=== PATIENT | male | born 1975 | race Caucasian/White ===

== ENCOUNTER → 2016-11-21 | Outpatient (CLI) | payer BC ==
[2016-11-21 08:08] LABS: Basophils % (A) 1 %; CH 32.7; CHCM 34.8; Eosinophils # (A) 0.2 k/uL (0-0.7); Eosinophils % (A) 4 %; HCT 46.1 % (39.0-53.0); HGB 15.1 gm/dL (13.0-17.5); Luc # (Auto) 0.17; Luc % (Auto) 4; Lymphocytes # (A) 1.5 k/uL (1.0-4.8); Lymphocytes % (A) 32 %; MCH 30.9 pg (25.0-35.0); MCHC 32.8 g/dL (31.0-37.0); MCV 94.3 fL (80.0-100.0); Mean Platelet Volume 6.3; Monocytes # (A) 0.3 k/uL (0-1.0); Monocytes % (A) 7 %; Neutrophils # (A) 2.3 k/uL (1.3-7.7); Neutrophils % (A) 52 %; RBC 4.89 m/uL (4.30-5.90); RDW 12.3 % (11.5-15.5); WBC 4.5 k/uL (3.8-10.6); WBC (Perox) 4.52
[2016-11-21 10:50] LABS: ALT 37 U/L (21-72); AST 26 U/L (17-59); Alkaline Phosphatase 57 U/L (38-126); Anion Gap 10 mmol/L; Blood Urea Nitrogen 14 mg/dL (9-20); Calcium 9.4 mg/dL (8.4-10.2); Carbon Dioxide 28 mmol/L (22-30); Chloride 104 mmol/L (98-107); Cholesterol 143 mg/dL (<200); Glucose 95 mg/dL (74-99); HDL Cholesterol 58 mg/dL (40-60); Non-African American GFR(MDRD) >60 (>60 ml/min/1.73 sqM); Potassium 4.3 mmol/L (3.5-5.1); Sodium 142 mmol/L (137-145); Total Bilirubin 0.7 mg/dL (0.2-1.3); Total Protein 7.1 g/dL (6.3-8.2); Triglycerides 62 mg/dL (<150)
== END | disposition home or self-care (01) ==
LOC: LABWHC1 07:31
PROVIDERS: ATTEND Internal Medicine
DX: Z00.00 Encounter for general adult medical examination without abnormal findings (principal); Z12.5 Encounter for screening for malignant neoplasm of prostate
CPT/HCPCS: 80061; 80053; 85025; 36415; G0103

== ENCOUNTER → 2016-12-05 | Outpatient (CLI) | payer BC ==
--- NOTE | 2016-12-05 12:10 | EST ---
DATE OF SERVICE: 12/05/2016 AGE: 41Y SEX: M HT: 71" WT: 185 lbs. Protocol James: X Other: Stage: IV Dur. of Exercise: 12:00 *Heart Rate Blood Pressure *Rest: 66 Rest: 119/67 * *Max. Achieved: 177 Maximum BP: 200/80 85% PMHR: 151 100% PMHR: 178 *METS: 10.9 INDICATIONS: Chest pain. MEDICATIONS: STRESS DATA: Pre-testing physical examination showed a heart rate of 66, pressure is 119/67 mm of mercury. Baseline EKG showed sinus mechanism. The patient exercised on the treadmill according to James protocol for a total of 12 minutes and achieved 10.9 mets. Maximum heart rate was 177 which is about 99% of maximum predicted heart rate. Maximum blood pressure was 200/80 mm of mercury. Clinically, the patient did not have any symptoms, and the EKG did not show any significant ST or T wave abnormalities consistent with ischemia. CONCLUSION: 1. Excellent exercise capacity. 2. Normal EKG in response in response to exercise.
== END | disposition home or self-care (01) ==
LOC: RADNMMAIN 10:33
PROVIDERS: ATTEND Internal Medicine
DX: R07.9 Chest pain, unspecified (principal)
CPT/HCPCS: 93017

== ENCOUNTER → 2019-01-09 | Outpatient (CLI) | payer BC ==
[2019-01-09 08:16] LABS: Basophils % (A) 1 %; Eosinophils # (A) 0.1 k/uL (0-0.7); Eosinophils % (A) 2 %; HCT 45.8 % (39.0-53.0); HGB 15.1 gm/dL (13.0-17.5); Lymphocytes # (A) 1.4 k/uL (1.0-4.8); Lymphocytes % (A) 33 %; MCH 30.8 pg (25.0-35.0); MCV 93.4 fL (80.0-100.0); Mean Platelet Volume 6.3; Monocytes # (A) 0.4 k/uL (0-1.0); Monocytes % (A) 10 %; Neutrophils # (A) 2.2 k/uL (1.3-7.7); Neutrophils % (A) 53 %; Platelet Count 190 k/uL (150-450); RDW 12.1 % (11.5-15.5); WBC 4.2 k/uL (3.8-10.6)
[2019-01-09 16:19] LABS: Albumin 4.3 g/dL (3.80-4.90); Albumin/Globulin Ratio 2.26 (1.60-3.17); Anion Gap 6.2 mmol/L (4.00-12.00); Calcium 9.4 mg/dL (8.7-10.3); Carbon Dioxide 27.8 mmol/L (21.6-31.8); Globulin 1.9 g/dL (1.6-3.3); LDL Cholesterol,Calculated 70.4 mg/dL (0.0-131.0); Potassium 4.3 mmol/L (3.5-5.5); Total Bilirubin 0.6 mg/dL (0.2-1.2); Total Protein 6.2 g/dL (6.2-8.2); VLDL Calculation 13.6 mg/dL (5.00-40.00)
== END | disposition home or self-care (01) ==
LOC: LABWHC1 07:25
PROVIDERS: ATTEND Internal Medicine
DX: Z00.00 Encounter for general adult medical examination without abnormal findings (principal); Z12.5 Encounter for screening for malignant neoplasm of prostate
CPT/HCPCS: 80061; 80053; 85025; 36415; G0103

== ENCOUNTER → 2019-02-26 | Outpatient (CLI) | payer BC ==
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
== END | disposition home or self-care (01) ==
LOC: SLEEP 16:47
PROVIDERS: ATTEND Internal Medicine
DX: G47.33 Obstructive sleep apnea (adult) (pediatric) (principal); Z87.81 Personal history of (healed) traumatic fracture; Z87.891 Personal history of nicotine dependence; Z98.890 Other specified postprocedural states
CPT/HCPCS: 99211

== ENCOUNTER 2020-01-14 18:06 | Inpatient (IN) | payer BC ==
--- NOTE | 2020-01-14 18:46 | XR ---
EXAMINATION TYPE: XR soft tissue neck DATE OF EXAM: 01/14/2020 COMPARISON: NONE HISTORY: Neck pain TECHNIQUE: 2 views FINDINGS: Prevertebral soft tissues appear normal. Tonsils and adenoids appear normal. Subglottic tra johnathan appears normal. There is some thickening of the epiglottis. Cervical vertebra have normal spacin g and alignment. IMPRESSION: There is thickening of the epiglottis suggestive of some mild epiglottitis.
[2020-01-14] MEDS ORDERED: DEXAMETHASONE SOD PHOSPHATE 10 MG/ML 1 ML VIAL IV STA (19:14)
[2020-01-14] MEDS ORDERED: SODIUM CHLORIDE 0.9% 1,000 ML IV STA (19:14)
[2020-01-14] MEDS ORDERED: ACETAMINOPHEN TAB 325 MG TAB PO PRN (19:21)
[2020-01-14] MEDS ORDERED: IBUPROFEN 400 MG TAB PO PRN (19:21)
[2020-01-14] MEDS ORDERED: HYDROmorphone 0.5 MG/0.5 ML SYRINGE IVP PRN (19:21)
[2020-01-14] MEDS ORDERED: KETOROLAC 30 MG/ML 1 ML VIAL IVP PRN (19:21)
[2020-01-14] MEDS ORDERED: NALOXONE 0.4 MG/ML 1 ML VIAL IV PRN (19:21)
[2020-01-14] MEDS ORDERED: LORazepam 2 MG/ML INJ IV PRN (19:21)
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
[2020-01-14 19:29] LABS: Basophils % (A) 0 %; Eosinophils # (A) 0.1 k/uL (0-0.7); Eosinophils % (A) 1 %; HCT 41.7 % (39.0-53.0); HGB 14.2 gm/dL (13.0-17.5); Lymphocytes # (A) 0.8 k/uL (1.0-4.8); Lymphocytes % (A) 8 %; MCHC 34.1 g/dL (31.0-37.0); Monocytes # (A) 0.8 k/uL (0-1.0); Monocytes % (A) 8 %; Neutrophils # (A) 8.7 k/uL (1.3-7.7); Neutrophils % (A) 83 %; Platelet Count 131 k/uL (150-450); RBC 4.44 m/uL (4.30-5.90); RDW 12.3 % (11.5-15.5); WBC 10.5 k/uL (3.8-10.6)
[2020-01-14 19:37] LABS: ALT 24 U/L (4-49); AST 29 U/L (17-59); African American GFR (CKD) >90 (>60 ml/min/1.73 sqM); Albumin 4.2 g/dL (3.5-5.0); Alkaline Phosphatase 68 U/L (38-126); Anion Gap 7 mmol/L; Blood Urea Nitrogen 8 mg/dL (9-20); Calcium 9.3 mg/dL (8.4-10.2); Carbon Dioxide 26 mmol/L (22-30); Chloride 100 mmol/L (98-107); Glucose 122 mg/dL (74-99); Non-African American GFR(CKD) >90 (>60 ml/min/1.73 sqM); Potassium 3.6 mmol/L (3.5-5.1); Sodium 133 mmol/L (137-145); Total Bilirubin 1.1 mg/dL (0.2-1.3); Total Protein 6.9 g/dL (6.3-8.2)
[2020-01-14] MEDS ORDERED: IBUPROFEN ORAL SUSP 100 MG/5 ML CUP PO ONE (19:38)
[2020-01-14] MEDS ORDERED: AMPICILLIN-SULBACTAM 3 GM in SODIUM CHLORIDE 0.9% 100 ML IVPB STA (19:39)
[2020-01-14] MEDS: SODIUM CHLORIDE 0.9% 1,000 ML IV SCH (19:46)
[2020-01-14] MEDS ORDERED: VANCOMYCIN IV PER PHARMACY 1 EACH MISC MISCELLANE PRN (20:10)
[2020-01-14] MEDS ORDERED: VANCOMYCIN 1,500 MG in SODIUM CHLORIDE 0.9% 250 ML IVPB STA (20:18)
[2020-01-14] MEDS ORDERED: CALCIUM CARBONATE LIQUID 500 MG/5 ML CUP PO PRN (22:17)
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
[2020-01-14] MEDS ORDERED: MELATONIN 3 MG TABLET PO SCH (23:15)
[2020-01-15 08:04] LABS: Basophils % (A) 0 %; Eosinophils % (A) 0 %; HCT 40.6 % (39.0-53.0); HGB 13.9 gm/dL (13.0-17.5); Lymphocytes # (A) 0.4 k/uL (1.0-4.8); Lymphocytes % (A) 5 %; MCH 32.5 pg (25.0-35.0); MCHC 34.3 g/dL (31.0-37.0); MCV 94.7 fL (80.0-100.0); Mean Platelet Volume 6.7; Monocytes # (A) 0.3 k/uL (0-1.0); Monocytes % (A) 4 %; Neutrophils # (A) 7.5 k/uL (1.3-7.7); Neutrophils % (A) 90 %; Platelet Count 138 k/uL (150-450); RBC 4.29 m/uL (4.30-5.90); RDW 12.2 % (11.5-15.5); WBC 8.3 k/uL (3.8-10.6)
[2020-01-15 08:07] LABS: African American GFR (CKD) >90 (>60 ml/min/1.73 sqM); Anion Gap 5 mmol/L; Blood Urea Nitrogen 9 mg/dL (9-20); Calcium 9.1 mg/dL (8.4-10.2); Carbon Dioxide 26 mmol/L (22-30); Chloride 107 mmol/L (98-107); Glucose 144 mg/dL (74-99); Non-African American GFR(CKD) >90 (>60 ml/min/1.73 sqM); Potassium 4.2 mmol/L (3.5-5.1); Sodium 138 mmol/L (137-145)
[2020-01-15] MEDS: SODIUM CHLORIDE 0.9% 1,000 ML IV SCH (08:21)
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
[2020-01-15] MEDS ORDERED: VANCOMYCIN 1,500 MG in SODIUM CHLORIDE 0.9% 250 ML IVPB SCH (09:00)
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
[2020-01-15] MEDS ORDERED: DEXAMETHASONE SOD PHOSPHATE 10 MG/ML 1 ML VIAL IV STA (16:12)
[2020-01-15 16:16] VITALS: BP 134/84; PULSE 81; RESP 17; TEMP 98.8
[2020-01-15] MEDS ORDERED: AZITHROMYCIN 500 MG TAB PO STA (16:26)
--- NOTE | 2020-01-15 17:16 | P.DS ---
Providers Date of admission: 01/14/20 19:35 Expected date of discharge: 01/15/20 Attending physician: Gege Mcmillan MD Consults: 01/14/20 19:21 Consult Physician Stat Consulting Provider: Greg Faustin Consult Reason/Comments: Epiglottitis, dysphagia Do you want consulting provider notified?: Yes 01/14/20 22:09 Consult Physician Routine Consulting Provider: Morteza Moody Consult Reason/Comments: epiglottitis Do you want consulting provider notified?: Already Contacted Primary care physician: Simba [place] Hospital Course: discharge diagnosis Acute pharyngitis mild epiglottitis dysphagia rule out CoViD asplenia Hospital course The patient is a 44-year-old male with no significant past focal history that presented with sore throat trouble swallowing and dysphagia found to have suspected sepsis due to acute epiglottitis and was admitted for IV antibiotics with Rocephin and vancomycin supportive treatment with IV fluids and pain control as needed, the patient had previously received a dose of Unasyn and steroids which were discontinued. Given the patient's history of asplenia and presenting with fevers and was thought but best practice to place him on observation and consult ENT. Of note the patient was heterophile antibody negative, the patient was seen by Dr. Moody and Dr. Faustin and recommended for discharge if there is no evidence of stridor or lower respiratory tract infection. He was discharged home in stable condition on azithromycin and a Medrol Dosepak and recommended to follow-up with his PCP/ this discharge process took approximately 35 minutes Focused exam ENT: Within normal limits Patient Condition at Discharge: Stable Plan - Discharge Summary Discharge Rx Participant: No New Discharge Prescriptions: New methylPREDNISolone Dose Pack [Medrol Dose Pack] 4 mg PO DIRECTED #21 package Azithromycin [Zithromax] 250 mg PO DAILY 4 Days #4 tab Continue Ibuprofen [Motrin Ib] 800 mg PO Q8H PRN PRN Reason: Pain Or Fever > 100.5 Discontinued Cefuroxime [Ceftin] 250 mg PO BID Discharge Medication List Ibuprofen [Motrin Ib] 800 mg PO Q8H PRN 01/14/20 [History] Azithromycin [Zithromax] 250 mg PO DAILY 4 Days #4 tab 01/15/20 [Rx] methylPREDNISolone Dose Pack [Medrol Dose Pack] 4 mg PO DIRECTED #21 package 01/15/20 [Rx] Follow up Appointment(s)/Referral(s): Simba Sandoval MD [Primary Care Provider] - 1-2 days Patient Instructions/Handouts: Epiglottitis (DC) Activity/Diet/Wound Care/Special Instructions: Patient will be admitted Discharge Disposition: HOME SELF-CARE
[2020-01-16] MEDS ORDERED: VANCOMYCIN TROUGH DUE 1 EACH MISC MISCELLANE ONE (08:00)
--- NOTE | 2020-01-17 06:55 | CONS ---
CONSULTATION DATE OF CONSULTATION: 01/15/2020. REASON FOR THE CONSULTATION: Supraglottitis/epiglottitis. HISTORY OF PRESENT ILLNESS: This patient is a pleasant 44-year-old male who was admitted via the [facility] for treatment of supraglottitis/epiglottitis. The patient states that approximately 4 or 5 days prior to his admission, he started developing mainly a left- sided sore throat. He denies any referred pain to the left ear. He is not a smoker. The soreness progressed to the point that he was having difficulty swallowing solid foods. After several days of the discomfort and pain, the patient states that he also started having some slight difficulty with breathing and therefore went to one of the urgent care centers. He was seen there and was subsequently placed on an antibiotic, he said he thinks it was Keflex 500 mg t.i.d. and was sent home. He only took one pill and because he did not feel better, he then felt that it would be best to go to the [facility] Emergency Room. At the time that he was seen in the emergency room, a soft tissue lateral x-ray of the neck revealed the presence of mild swelling of the soft tissue of the epiglottis. The patient at that time was not having any difficulty breathing, but was having difficulty swallowing solid foods, but was not having difficulty handling his own secretions. He was not drooling. In addition to this, he was running a low-grade temperature of 100. Although on reviewing soft tissue lateral x-ray of the neck does not reveal the classic "thumbprint sign", there is evidence of soft tissue swelling and edema of the epiglottis with no obvious obstruction to the upper airway and there is no subglottic edema, swelling or narrowing of the trachea. The patient was admitted to [address] [place] [address] and was placed on oxygen, vancomycin and was given intravenous steroids. I was called on consultation on this patient because of concerns of his airway. At the time of the consultation I did inform the nurse that the patient could go ahead and have a meal because it is quite unusual given the findings that I saw on his x-rays that he would need a tracheostomy which is rarely done and rarely indicated in modern day medicine. At the very most, these patients are well handled with intubation, although in the case of adults it is rare that adults reached the point of developing complete or emergency airway obstruction. At the time I saw the patient in the room, he was doing well and was not having any difficulty breathing and was able to swallow food stuff without difficulty. PAST MEDICAL HISTORY: He has no allergies to medications MEDICATIONS: Current home medications include [id number] Motrin, and he had started a Medrol Dosepak and Zithromax from the Urgent Care Center (apparently was not Keflex). REVIEW OF SYSTEMS: The review of systems is completely noncontributory. PHYSICAL EXAMINATION: This patient is a very pleasant 44-year-old male who is alert, cooperative and well- oriented to time and place. HEENT examination: Patient is normocephalic. Tympanic membranes are normal. Middle ear space is free of any fluid or infection. Pupils equal, round, react to light and accommodation. Extraocular movements within normal limits. Intranasal examination reveals moderate to severe septal deviation with bilateral compensatory hypertrophy of the inferior turbinates. There is a moderate amount of clear mucus on the mucous membranes and draining down the posterior pharynx. Palpation of the neck is negative for any neck masses or lymphadenopathy. Cursory examination of the oropharynx does not reveal any evidence of a so-called lam red or enlarged epiglottis in the hypopharynx. Obviously it would not be possible to do an indirect laryngoscopy or endoscopic exam at this at this time in the patient's room. In addition, I do not think would be indicated because the patient is doing quite well. Cranial nerves 2-12, the remainder of the head neck exam is unremarkable. CHEST/CARDIOVASCULAR: Both lung bryant are clear to percussion auscultation. Patient is in regular sinus rhythm. S1, S2 are present without any murmurs, S3s or S4s. Lung sounds are clear. There is no wheezing, rales, rhonchi, or unusual airway sounds. ABDOMEN: There is no evidence any masses, megaly or tenderness. Abdomen is soft. The remainder of physical exam is unremarkable. IMPRESSION: Supraglottitis/epiglottitis. PLAN: I had spoke with the patient and advised that if he would like it, I think it would be okay from an ENT standpoint for him to go home. He is not having difficulty eating or breathing and his pain is minimal at this point. I advised that if he does have any significant pain, he may take any ntvc-npl-xzyhwne medications such as Motrin, ibuprofen or Tylenol. In addition to this, because he has had a major illness I advised that it would be a good idea if he was to remain off work if possible until he is seen by his primary care doctor. I advised that I will not need to see him on followup for any particular reason unless he would like to be seen in my office. He is a nonsmoker and therefore that is not an issue. With respect to the down time, because he was tested for the coronavirus in the hospital and results are not back, I advised the patient it would be a good idea for him to self isolate himself until he receives the results which he should receive within the next 24-48 hours. After that time, it should be okay. He could be discharged on whichever antibiotic the attending physician feels would be appropriate that would match the coverage of vancomycin. In addition to this, he has a Medrol Dosepak at home which I advised that he should go ahead and resuming and complete that. I will be giving the patient a single 10 mg IV dose of dexamethasone before he leaves the hospital to further reduce any swelling of the epiglottis. There are no diet restrictions on this patient. He was advised if he has any further problems he should feel free to return to the emergency room. Because an adult's most usual offending bacteria is resistant Staph aureus, it would be a good idea to make sure that whatever antibiotic he is placed on he would be covered for not only the H influenza but also resistant Staph aureus. I would like to take this opportunity to thank you for allowing me to assist in the care of your patient. If I could be of any further assistance, please feel free to call my office. MMODL / IJN: [id number] /
--- NOTE | 2020-01-18 12:44 | CDI ---
Documentation Clarification Form Date: 01/18/20 From: Daisy Mederos Phone: If you have a question about this query, please contact Nerissa Kinney, [employer] at [phone] between 8am and 5pm. Admit Date: 01/14/20 Discharge Date: 01/15/20 Patient Name: ROGELIO LOYOLA Visit Number: [id number] ATTENTION: The Clinical Documentation Specialists (CDI) and [facility] Coding Staff appreciate your assistance in clarifying documentation. Please respond to the clarification below the line at the bottom and electronically sign. The CDI & [facility] Coding staff will review the response and follow-up if needed. Please note: Queries are made part of the Legal Health Record. If you have any questions, please contact the author of this message via ITS. Dear Dr. Renato Bernard, Conflicting documentation has been found in the medical record: Per H&P and PN states the patient has sepsis. Per DS states The patient is a 44-year-old male with no significant past focal history that presented with sore throat trouble swallowing and dysphagia found to have suspected sepsis due to acute epiglottitis and was admitted for IV antibiotics and IV fluids and pain control as needed History/Risk Factors: Asplenia, hx smoking Clinical Indicators: WBC-10.5, Neutrophils-8.7, lactic acid-1.0, T-100.5/101.4, P-118, R-18/24, BC- no growth Treatment: IV Decadron, IV fluids, IV Kefzol, IV Unasyn, IV Vanco, IV Rocephin, discharged on Zithromax 500 mg po In your opinion, what is the most clinically appropriate diagnosis for this patient? Sepsis ruled in Sepsis ruled out Other explanation of clinical findings Unable to determine (no explanation for clinical findings) Unable to determine MTDD
--- NOTE | 2020-01-28 15:39 | CDI ---
Documentation Clarification Form Date: 01/28/2020 03:16:10 PM From: Maddy Mendez Admit Date: 01/14/2020 07:35:00 PM Patient Name: Morteza Israel Visit Number: [id number] Discharge Date: 01/15/2020 05:40:00 PM ATTENTION: The Clinical Documentation Specialists (CDI) and [facility] Coding Staff appreciate your assistance in clarifying documentation. Please respond to the clarification below the line at the bottom and electronically sign. The CDI & [facility] Coding staff will review the response and follow-up if needed. Please note: Queries are made part of the Legal Health Record. If you have any questions, please contact the author of this message via ITS. Dr. Renato Bernard Coding guidelines do not allow coding professionals to code based on laboratory results; therefore, your input is requested. The COVID-19 test obtained on 01/13 was reported as Negative on 01/16 (fill in the dates). Rule out COVID Documented in the Discharge summary 01/14 44-year-old male presents to the ED with a sore throat, no reported medical history. Clinical Indicators Patient reported sore throat and fever (fever, chills, cough, SOB, loss of smell) 01/13 VS in ED Triage: 100.5 F, 139/86 118 18 98%ra 01/13 Labs Wbc 10.5, Plt 131, Neutrophils 8.7, Lymphocytes 0.8, Treatment: 01/14 Pulmonary consult: Mild epiglottitis as a complication of the patients acute pharyngitis, much improved. Rule out COVID 19 Infection.(fill in the date, assessment, recommendation) MEDS: 01/13 Ampicillin Ivpb x1, Azithromycin Po x1, Ceftriaxone Ivpb x1, 0.9ns 1L Bolus followed by 75cc/hr, Vancomycin ivpb Q8Hrs In order to capture the severity of condition, please clarify the COVID-19 status: COVID-19 ruled out False negative, treating for COVID-19 based on these clinical indicators: Other, please specify Unable to determine (Last Form Revision: December 2019) Unable to determine MTDD
--- NOTE | 2020-02-04 08:56 | CDI ---
Documentation Clarification Form Date: 02/04/2020 08:52 AM From: Maddy Mendez RN CCDS Admit Date: 01/14/2020 07:35 PM Patient Name: Morteza Israel Visit Number: [id number] Discharge Date: 01/15/2020 05:40:00 PM ATTENTION: The Clinical Documentation Specialists (CDI) and [facility] Coding Staff appreciate your assistance in clarifying documentation. Please respond to the clarification below the line at the bottom and electronically sign. The CDI & [facility] Coding staff will review the response and follow-up if needed. Please note: Queries are made part of the Legal Health Record. If you have any questions, please contact the author of this message via ITS. Dr. Brice MD Coding guidelines do not allow coding professionals to code based on laboratory results; therefore, your input is requested. The COVID-19 test obtained on 01/13 was reported as Negative on 01/16 Rule out COVID Documented in the Discharge summary 01/14 44-year-old male presents to the ED with a sore throat, no reported medical history. Clinical Indicators Patient reported sore throat and fever 01/13 VS in ED Triage: 100.5 F, 139/86 118 18 98%ra 01/13 Labs Wbc 10.5, Plt 131, Neutrophils 8.7, Lymphocytes 0.8, Treatment: 01/14 Pulmonary consult: Mild epiglottitis as a complication of the patients acute pharyngitis, much improved. Rule out COVID 19 Infection. MEDS: 01/13 Ampicillin Ivpb x1, Azithromycin Po x1, Ceftriaxone Ivpb x1, 0.9ns 1L Bolus followed by 75cc/hr, Vancomycin ivpb Q8Hrs In order to capture the severity of condition, please clarify the COVID-19 status: COVID-19 ruled out False negative, treating for COVID-19 based on these clinical indicators: Other, please specify (Last Form Revision: December 2019) MTDD
--- NOTE | 2020-02-17 08:21 | CDI ---
Documentation Clarification Form Date: 01/28/2020 03:16:10 PM From: Maddy Mendez RN CCDS Admit Date: 02/04/2020 08:52 AM Patient Name: Morteza Israel Visit Number: [id number] Discharge Date: 01/15/2020 05:40:00 PM ATTENTION: The Clinical Documentation Specialists (CDI) and [facility] Coding Staff appreciate your assistance in clarifying documentation. Please respond to the clarification below the line at the bottom and electronically sign. The CDI & [facility] Coding staff will review the response and follow-up if needed. Please note: Queries are made part of the Legal Health Record. If you have any questions, please contact the author of this message via ITS. Dr. Bernard, Coding guidelines do not allow coding professionals to code based on laboratory results; therefore, your input is requested. The COVID-19 test obtained on 01/13 was reported as Negative on 01/16 Per H&P 01/13 Patient had COVID 19 testing done at [facility]. Presentation is not suggestive of COVID 19, but due to widespread cases in community, droplet and contact precautions applied. Rule out COVID Documented in the Discharge summary 01/14 44-year-old male presents to the ED with a sore throat, no reported medical history. Clinical Indicators Patient reported sore throat, fever, works at [employer] and exposed to patients who claimed they had fevers. 01/13 VS in ED Triage: 100.5 F, 139/86 118 18 98%ra 01/13 Labs Wbc 10.5, Plt 131, Neutrophils 8.7, Lymphocytes 0.8, Treatment: 01/14 Pulmonary consult: Mild epiglottitis as a complication of the patients acute pharyngitis, much improved. Rule out COVID 19 Infection. Treatment for epiglottitis 01/13 Ampicillin Ivpb x1, Azithromycin Po x1, Ceftriaxone Ivpb x1, Vancomycin ivpb Q8Hrs, 0.9ns 1L Bolus followed by 75cc/hr, In order to capture the severity of condition, please clarify the COVID-19 status: COVID-19 ruled out False negative, treating for COVID-19 based on these clinical indicators: Other, please specify (Last Form Revision: December 2019) MTDD
== END 2020-01-15 17:40 | disposition home or self-care (01) | DRG 153 ==
LOC: EC 18:06 → 3SCARD 19:35
PROVIDERS: ADMIT Internal Medicine; ATTEND Internal Medicine
DX: J05.10 Acute epiglottitis without obstruction (principal); Q89.01 Asplenia (congenital); J02.9 Acute pharyngitis, unspecified; R13.10 Dysphagia, unspecified; Z20.828 Contact with and (suspected) exposure to other viral communicable diseases; Z87.891 Personal history of nicotine dependence; Z98.890 Other specified postprocedural states; Z82.49 Family history of ischemic heart disease and other diseases of the circulatory system; Z80.3 Family history of malignant neoplasm of breast
CPT/HCPCS: 36415; 70360; 80048; 80053; 83605; 85025; 86308; 87040; 96365; 96375; 99285

== ENCOUNTER → 2020-06-29 | Outpatient (CLI) | payer BC ==
[2020-06-29 10:25] LABS: HCT 44.8 % (39.0-53.0); MCH 31.8 pg (25.0-35.0); MCHC 33.4 g/dL (31.0-37.0); MCV 95.1 fL (80.0-100.0); Mean Platelet Volume 6.7; Platelet Count 187 k/uL (150-450); RBC 4.71 m/uL (4.30-5.90); RDW 12.1 % (11.5-15.5); WBC 4.6 k/uL (3.8-10.6)
[2020-06-29 10:29] LABS: Partial Thromboplastin Time 26.8 sec (22.0-30.0); Prothrombin Time 10.7 sec (9.0-12.0)
[2020-06-29 10:33] LABS: ALT 39 U/L (4-49); AST 40 U/L (17-59); African American GFR (CKD) >90 (>60 ml/min/1.73 sqM); Albumin 4.4 g/dL (3.5-5.0); Alkaline Phosphatase 71 U/L (38-126); Anion Gap 8 mmol/L; Blood Urea Nitrogen 9 mg/dL (9-20); Calcium 9.5 mg/dL (8.4-10.2); Carbon Dioxide 28 mmol/L (22-30); Chloride 103 mmol/L (98-107); Glucose 102 mg/dL (74-99); Non-African American GFR(CKD) >90 (>60 ml/min/1.73 sqM); Potassium 4.1 mmol/L (3.5-5.1); Sodium 139 mmol/L (137-145); Total Bilirubin 0.8 mg/dL (0.2-1.3); Total Protein 7.1 g/dL (6.3-8.2)
[2020-06-29 10:34] LABS: Appearance,Urine Clear (Clear); Bilirubin,Urine Negative (Negative); Blood,Urine Trace (Negative); Color,Urine Yellow; Glucose,Urine (UA) Negative (Negative); Ketones,Urine Negative (Negative); Leukocyte Esterase,Urine Negative (Negative); Mucus,Urine Rare /hpf; Nitrite,Urine Negative (Negative); Protein,Urine Negative (Negative); RBC,Urine 3 /hpf (0-5); Specific Gravity,Urine 1.013 (1.001-1.035); Urobilinogen,Urine <2.0 mg/dL (<2.0); WBC,Urine <1 /hpf (0-5)
== END | disposition home or self-care (01) ==
LOC: LABPAT 09:19
PROVIDERS: ATTEND Orthopaedic Surgery
DX: Z01.818 Encounter for other preprocedural examination (principal); Z01.812 Encounter for preprocedural laboratory examination
CPT/HCPCS: 36415; 80053; 81001; 85027; 85610; 85730; 87070

== ENCOUNTER 2020-07-04 13:30 | Observation (INO) | payer BC ==
[2020-06-28 08:45] VITALS: BMI 25.7
[~2020-07-04 13:30] MED LIST: ACETAMINOPHEN TAB 500 MG TAB PO ONE; DEXAMETHASONE SOD PHOSPHATE 10 MG/ML 1 ML VIAL IV ONE; HYDROmorphone 0.5 MG/0.5 ML SYRINGE IVP PRN; MELOXICAM 7.5 MG TAB PO ONE; ONDANSETRON 4 MG/2 ML VIAL IVP ONE; TRANEXAMIC ACID 1,000 MG in SODIUM CHLORIDE 0.9% 100 ML IVPB ONE
[2020-07-04] MEDS: LACTATED RINGERS 1,000 ML IV SCH ×2 (14:11→19:31)
[2020-07-04] MEDS ORDERED: MIDAZOLAM 2 MG/2 ML VIAL IV ONE (14:11)
[2020-07-04] MEDS ORDERED: PHENYLEPHRINE-0.9% NACL SYG 1 MG/10 ML SYRINGE ONE (15:11)
[2020-07-04] MEDS ORDERED: SODIUM CHLORIDE 0.9% 100 ML BAG ONE (15:11)
[2020-07-04] MEDS ORDERED: MIDAZOLAM 2 MG/2 ML VIAL ONE (15:11)
[2020-07-04] MEDS ORDERED: fentaNYL (PF) 50 MCG/ML 2 ML AMP ONE (15:11)
[2020-07-04] MEDS ORDERED: KETAMINE 10 MG/ML 20 ML VIAL ONE (15:11)
[2020-07-04] MEDS ORDERED: TRANEXAMIC ACID 1,000 MG/10 ML VIAL ONE (15:11)
[2020-07-04] MEDS ORDERED: GLYCOPYRROLATE 0.2 MG/ML 2 ML VIAL ONE (15:11)
[2020-07-04] MEDS ORDERED: PROPOFOL 10 MG/ML 20 ML VIAL IV ONE (15:11)
[2020-07-04] MEDS: ROPIVACAINE 246.25 MG, EPINEPHrine 0.5 MG, KETOROLAC 30 MG, cloNIDine HCL/PF 80 MCG, WA... MISCELLANE ONE ×15 (15:55→16:37)
[2020-07-04] MEDS ORDERED: LACTATED RINGERS 1,000 ML IV ONE (16:05)
[2020-07-04] MEDS ORDERED: ceFAZolin 3,000 MG in SODIUM CHLORIDE 0.9% IRRIGATIO 3,000 ML IRRIGATION ONE (16:11)
--- NOTE | 2020-07-04 17:01 | P.OP ---
Date of Procedure: 07/04/20 Procedure(s) Performed: PREOPERATIVE DIAGNOSIS: Left hip severe advanced stage avascular necrosis/os teonecrosis POSTOPERATIVE DIAGNOSIS: Left hip severe advanced stage avascular necrosis/osteonecrosis OPERATION: Left hip total replacement arthroplasty (uncemented implantation with ceramic on polyethylene articulation). ANESTHESIA: Spinal ESTIMATED BLOOD LOSS: 150 ml. CONTRACT POST OFFICE CLERK: Leesa Freitas PA-C (assistance with: patient positioning, retraction, exposure, hemostasis, leg positioning, implantation, irrigation, closure, dressing) COMPLICATIONS: None apparent. COMPONENTS IMPLANTED: Thuy continuum acetabular cup with cluster holes; continuum longevity 15 elevated liner, 32 mm id; Thuy VerSys Fiber Metal stem; VerSys 32 mm femoral head with +10.5 mm neck length extension INDICATIONS: Morteza is a 45-year-old male with significant end-stage avascular necrosis/osteonecrosis involving the left hip and commensurate severe symptoms. He presents to the operating room today for total hip replacement. I have discussed the steps of the operation as well as potential risks and comp lications as being inclusive of, but not limited to: Bleeding, infection, scarring, discomfort, or vessel and/or nerve damage, need for further surgery, loosening, dislocation, wear, osteolysis, limb length inequality, fracture, blood clot, pulmonary embolism, , persistent limp, and other risks. The patient is aware these risks and wishes to proceed with surgery and has signed a consent form. PROCEDURE: After appropriate consent was obtained, the patient was taken to the operating room and placed in supine position. Spinal anesthetic was administered and after confirmation of adequate anesthesia, the patient was placed into the lateral decubitus position with the left side up. Care was taken to make sure that all pressure points were adequately padded and he was stabilized to the tab le with a Anderson hip positioner. The left hip was prepped and draped in the usual aseptic fashion using a combination of ChloraPrep and alcohol. [place] drape was used for the case and the patient received intravenous antibiotics prior to the incision. "Time out" was called, confirming patient identity, side, procedure, availability of implants and administration of antibiotics. The incision was created directly over the greater trochanter and carried slightly posteriorly for a posterior approach to the hip. The incision was then deepened down to subcutaneous tissue and fascia michelle. Fascia michelle was split in line with the incision and split proximally along the fibers of the gluteus odilia. The underlying fibers of the muscle were teased apart using finger dissection and bleeding vessels were picked up and coagulated. Retractor was then placed posteriorly consisting of a blunt [place]. The short external rotators and capsule were exposed using good visualization of the attachment of the external rotators to the femur was established. The short external rotators and capsule were released using electrocautery from their femoral attachments. A hockey stick shaped incision was created in the capsule. Joint fluid was evacuated and the patient's hip was able to be dislocated fairly easily. The patient's femoral head was severely necrotic with delaminating cartilage and an out of round/flattened superior femoral head. The femoral neck cut was created approximately 1 cm superior to the lesser trochanter using a reciprocating saw. The femoral head and neck fragment was removed and attention was then directed to the acetabulum. An anterior acetabular retractor was applied followed by posterior retraction of the capsule with a Meyerding retractor. This afforded good visualization into the acetabular cavity. Soft tissue was removed and residual cartilage within the acetabular vault was removed using a curette. Labrum was removed using a long-handled knife. Attention was then directed to reaming. The size 44 reamer was used first, followed by increasing increments until the final size reamer was used. Please see the implantation sheet for exact sizes used for the comp onents. Once the final reamer had been utilized to expand the socket it was noted that there was a good supportive bone around the acetabular socket and no further reaming needed to be performed. The trial the same size as the last reamer used was then impacted into the acetabular vault and found to have good fit. The acetabular component, one size (2mm) greater than the trial was then called for. The cluster holes were placed posteriorly and the component was impacted in a position of approximately 40 degrees abduction and 20 degrees anteversion. This matched this patient's [place] anteversion and it was noted that the cup had excellent stability without need for additional screw fixation. Attention was then directed to the acetabular liner. The anteversion and abduction angle of the component was noted to be very good. A 15 elevated liner was used and locked into position. Osteophytes around the posterior and inferior aspect of the acetabulum were trimmed as necessary to prevent any impingement. Attention was then directed back to the proximal femur. Retractors were placed around the proximal femur and box osteotome was used followed by canal finder and trochanteric reamer. Cylindrical reaming was performed. Progressive broaching was then performed starting with a #10 broach and progressing final size, in a position of 15 degrees anteversion. [place] anteversion was within 5 degrees of stem position. The final size broach had excellent fit and fill of the patient's metaphysis and diaphysis. Trial reduction was then performed starting with size 32 mm femoral head and various neck combination of stability, limb length equality, and soft tissue tension. Trial components were then removed. The canal was lavaged and the final size femoral stem component was impacted into position. The implant fit very well and had excellent stability. The femoral head was then impacted onto the Manzano taper. Blood and debris were removed from the acetabular component and the hip was then reduced and checked for stability, limb length and soft tissue tension. These parameters found to be satisfactory, the wound was then thoroughly irrigated with normal saline. Final hemostasis was obtained using electrocautery and IV tranexamic acid, 1 g given at the time of prepping and draping, and another 1 g given at the time of closure. Local anesthetic solution consisting of ropivacaine with epinephrine, clonidine, and ketorolac was also used throughout the case targeting the capsule, fascia, and skin. Closure of the capsule was performed meticulously using #3 Vicryl suture. Four [id number] sutures were placed in the posterior capsule along with repair of the external rotators. The fascia michelle was then repaired using combination of #3 Vicryl suture in interrupted fashion and [place] and running fashion. 2-0 Vicryl suture was used for the subcutaneous tissues and 3-0 [place]ill for the skin. Dermabond or Steri-Strips were then applied. The patient tolerated the procedure well. There were no complications and the wound bed was dry and there was no need for drain placement. Sterile dressing was then applied and the patient was carefully removed from the operating room table, placed on the stretcher and was taken to the recovery room in stable condition. Sponge and needle counts were correct.
[2020-07-04] MEDS ORDERED: TEMAZEPAM 15 MG CAP PO PRN (17:29)
[2020-07-04] MEDS ORDERED: HYDROmorphone 0.5 MG/0.5 ML SYRINGE IVP PRN ×2 (17:29)
[2020-07-04] MEDS ORDERED: ACETAMINOPHEN TAB 325 MG TAB PO PRN (17:29)
[2020-07-04] MEDS ORDERED: HYDROmorphone 1 MG/ML 1 ML SYRINGE IVP PRN (17:29)
[2020-07-04] MEDS ORDERED: NALOXONE 0.4 MG/ML 1 ML VIAL IV PRN (17:29)
[2020-07-04] MEDS ORDERED: hydrOXYzine pamoate 25 MG CAP PO PRN (17:29)
[2020-07-04] MEDS ORDERED: MAGNESIUM HYDROXIDE 2,400 MG/10 ML CUP PO PRN (17:29)
[2020-07-04] MEDS ORDERED: ONDANSETRON 4 MG/2 ML VIAL IVP PRN (17:29)
[2020-07-04] MEDS ORDERED: HYDROcodone/APAP 7.5-325MG 1 EACH TAB PO PRN (17:29)
--- NOTE | 2020-07-04 17:46 | XR ---
EXAMINATION TYPE: XR Hip Limited LT DATE OF EXAM: 07/04/2020 COMPARISON: NONE HISTORY: Postop TECHNIQUE: FINDINGS: A single view shows left hip prosthesis. Components appear in anatomic position. IMPRESSION: No complicating process seen.
[2020-07-04 19:21] VITALS: RESP 18
[2020-07-04] MEDS: HYDROcodone/APAP 7.5-325MG 1 EACH TAB PO PRN (19:34)
[2020-07-04] MEDS: ASPIRIN 81 MG PO SCH (20:57)
[2020-07-04] MEDS: oxyCODONE ER 10 MG TAB.ER.12H PO SCH (20:57)
[2020-07-04] MEDS ORDERED: SENNOSIDES-DOCUSATE SODIUM 1 EACH TAB PO SCH (21:00)
[2020-07-05] MEDS: LACTATED RINGERS 1,000 ML IV SCH ×3 (00:22→13:36)
[2020-07-05] MEDS: HYDROcodone/APAP 7.5-325MG 1 EACH TAB PO PRN ×2 (05:11→13:36)
[2020-07-05 06:02] LABS: Basophils % (A) 0 %; Eosinophils # (A) 0.1 k/uL (0-0.7); Eosinophils % (A) 1 %; HCT 34.9 % (39.0-53.0); Lymphocytes # (A) 0.9 k/uL (1.0-4.8); Lymphocytes % (A) 9 %; MCH 31.7 pg (25.0-35.0); MCHC 33.6 g/dL (31.0-37.0); MCV 94.2 fL (80.0-100.0); Mean Platelet Volume 7.7; Monocytes # (A) 0.9 k/uL (0-1.0); Monocytes % (A) 9 %; Neutrophils # (A) 8.2 k/uL (1.3-7.7); Neutrophils % (A) 81 %; Platelet Count 132 k/uL (150-450); RBC 3.71 m/uL (4.30-5.90); RDW 11.9 % (11.5-15.5); WBC 10.1 k/uL (3.8-10.6)
[2020-07-05 06:09] LABS: HGB 11.8 gm/dL (13.0-17.5)
[2020-07-05] MEDS: ASPIRIN 81 MG PO SCH (07:33)
[2020-07-05] MEDS: oxyCODONE ER 10 MG TAB.ER.12H PO SCH (07:56)
[2020-07-05] MEDS ORDERED: MELOXICAM 7.5 MG TAB PO SCH (09:00)
[2020-07-05 09:13] LABS: Glucose,Whole Blood 137 mg/dL (75-99)
[2020-07-05] MEDS ORDERED: SODIUM CHLORIDE 0.9% 500 ML 500 ML IV ONE (09:21)
--- NOTE | 2020-07-05 10:13 | P.PN ---
Subjective Progress Note Date: 07/05/20 Principal diagnosis: Avascular necrosis left hip. Status post total left hip arthroplasty. This is a 45-year-old male who is status post total left hip arthroplasty. He had syncopal episodes 2, one of them being just this morning. He is hypotensive. He is currently receiving a bolus of IV fluid. His vital signs are otherwise stable. Objective - Vital Signs Vital signs: Vital Signs Temp 98.1 F 07/05/20 07:00 Pulse 76 07/05/20 09:09 Resp 18 07/05/20 09:09 BP 109/74 07/05/20 09:24 Pulse Ox 98 07/05/20 09:09 Intake & Output 07/04/20 07/05/20 07/05/20 18:59 06:59 18:59 Intake Total 1351 1100 Output Total 150 1200 1000 Balance 1201 -100 -1000 Weight 85.1 kg 85.1 kg Intake: IV 1351 Intake, IV Titration 300 Amount Lactated Ringers 1,000 ml 300 @ 100 mls/hr IV .Q10H [facility] Rx#:[id number] Oral 800 Output: Urine 1200 1000 Estimated Blood Loss 150 Other: Voiding Method Urinal # Voids 3 - Exam This is a pleasant 45-year-old male in no acute distress. He is alert and oriented at this time. Exam of the left hip reveals that his dressing is clean, dry and intact. He has full foot and ankle motion without difficulty or pain. Neurovascular status to the lower extremity is intact. - Labs CBC & Chem 7: 07/05/20 05:41 Labs: Abnormal Lab Results - Last 24 Hours (Table) 07/05/20 07/05/20 Range/Units 05:41 09:11 RBC 3.71 L (4.30-5.90) m/uL Hgb 11.8 L D (13.0-17.5) gm/dL Hct 34.9 L (39.0-53.0) % Plt Count 132 L (150-450) k/uL Neutrophils # 8.2 H (1.3-7.7) k/uL Lymphocytes # 0.9 L (1.0-4.8) k/uL POC Glucose (mg/dL) 137 H (75-99) mg/dL Assessment and Plan (1) Avascular necrosis of bone of left hip Current Visit: Yes Status: Acute Code(s): M87.052 - IDIOPATHIC ASEPTIC NECROSIS OF LEFT FEMUR SNOMED Code(s): 604580698 (2) Status post total replacement of left hip Current Visit: Yes Status: Acute Code(s): Z96.642 - PRESENCE OF LEFT ARTIFICIAL HIP JOINT SNOMED Code(s): 847729952802 Plan: The clinical findings are discussed with the patient. He is hypotensive and is having syncopal episodes. He is currently getting a bolus of IV fluid. We will see how he is doing this afternoon. He is able to ambulate and blood pressure remained stable he may be discharged to home later today. Otherwise we will keep him until tomorrow.
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
[2020-07-05 15:50] VITALS: BP 109/67
[2020-07-05 16:01] VITALS: PULSE 79; TEMP 98.3
--- NOTE | 2020-07-06 08:26 | P.DS ---
Providers Date of admission: 07/05/20 11:40 Expected date of discharge: 07/05/20 Attending physician: Scotty Waggoner Consults: 07/04/20 17:29 Consult Physician Routine Consulting Provider: Kalli Barlow Consult Reason/Comments: Medical management Do you want consulting provider notified?: Yes Primary care physician: Kalli Yen - Discharge Diagnosis(es) (1) Avascular necrosis of bone of left hip Status: Acute (2) Status post total replacement of left hip Status: Acute Hospital Course: This is a 45-year-old male with known history of avascular necrosis of the left hip. The patient presents for evaluation. After discussion and consideration patient elects to proceed with total left hip arthroplasty. The patient is seen preoperatively by Dr. Hendrickson and cleared for surgery. Patient is admitted to [facility] on 07/04/2020 for total left hip arthroplasty. The procedures performed without complication or sequelae. He did have a couple of syncopal episodes postoperatively secondary to hypotension. Orthostatic blood pressures prior to discharge were within normal limits. The patient is doing well postoperatively from an orthopedic standpoint. Labs and vital signs are stable on day of discharge. On day of discharge patient's hip incision is healing well. There is minimal erythema. There is no drainage noted at this time. There is minimal soft tissue swelling to the hip and thigh. Patient has full foot and ankle motion without difficulty or pain. Neurovascular status to the left lower extremity is intact. Patient is discharged to home in good condition. See [facility] rec for accurate list of home medications. Plan - Discharge Summary Discharge Rx Participant: No New Discharge Prescriptions: New Aspirin [Adult Low Dose Aspirin EC] 81 mg PO BID #1 tablet. Meloxicam [Mobic] 1 - 2 tab PO DAILY PRN #40 tab PRN Reason: Pain HYDROcodone/APAP 7.5-325MG [[place] 7.5-325] 1 - 2 tab PO Q4-6H PRN #50 tab PRN Reason: Pain Sennosides-Docusate Sodium [Senokot-S] 1 tab PO BID #60 tablet hydrOXYzine pamoate [Vistaril] 25 mg PO Q4-6H #30 capsule No Action Ibuprofen [Motrin] 800 mg PO Q8H Discharge Medication List Aspirin [Adult Low Dose Aspirin EC] 81 mg PO BID #1 tablet. 07/04/20 [Rx] HYDROcodone/APAP 7.5-325MG [[place] 7.5-325] 1 - 2 tab PO Q4-6H PRN #50 tab 07/04/20 [Rx] Ibuprofen [Motrin] 800 mg PO Q8H 07/04/20 [History] Meloxicam [Mobic] 1 - 2 tab PO DAILY PRN #40 tab 07/04/20 [Rx] Sennosides-Docusate Sodium [Senokot-S] 1 tab PO BID #60 tablet 07/04/20 [Rx] hydrOXYzine pamoate [Vistaril] 25 mg PO Q4-6H #30 capsule 07/04/20 [Rx] Follow up Appointment(s)/Referral(s): Leesa Freitas PAC [PHYSICIAN STAFF NURSE] - 07/20/20 4:15 pm Kalli Barlow MD [Primary Care Provider] - 1 Week [facility], [NON-STAFF] - As Needed Activity/Diet/Wound Care/Special Instructions: 50% wt bearing LLE w walker. May shower. Leave Optifoam dressing intact for 7-10 days. Discharge Disposition: HOME SELF-CARE
== END 2020-07-05 17:42 | disposition home or self-care (01) ==
LOC: OR 13:30 → 4SSUR 18:48 → OR 07-05 11:40
PROVIDERS: ADMIT Orthopaedic Surgery; ATTEND Orthopaedic Surgery
DX: I95.9 Hypotension, unspecified (principal); R55 Syncope and collapse; L29.9 Pruritus, unspecified; M87.9 Osteonecrosis, unspecified; T40.2X5A Adverse effect of other opioids, initial encounter; Z79.82 Long term (current) use of aspirin; Z87.891 Personal history of nicotine dependence; R05 Cough
CPT/HCPCS: 27130; 97110; 97161; 97535; 97165; 85025; 88300; 73501; G0378; C1776; J2250; J0171; J1100; J0690 ×3; J2405; J3010; J1885; J2795; J2370; J2704; J0735; J1170; 86850; 86900; 86901

== ENCOUNTER → 2020-12-05 | Outpatient (CLI) | payer BC ==
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
== END | disposition home or self-care (01) ==
LOC: RADUSWWP 06:59
PROVIDERS: ATTEND Internal Medicine
DX: K76.0 Fatty (change of) liver, not elsewhere classified (principal)
CPT/HCPCS: 76705

== ENCOUNTER → 2021-08-17 | Outpatient (CLI) | payer BC | END | disposition home or self-care (01) | LOC: LABWHC1 08:39 | PROVIDERS: ATTEND Internal Medicine | DX: Z77.011 Contact with and (suspected) exposure to lead (principal) | CPT/HCPCS: 36415; 82175; 82570; 83655; 83825 ==

== ENCOUNTER → 2021-09-02 | Outpatient (CLI) | payer BC ==
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
== END | disposition home or self-care (01) ==
LOC: RADXRMAIN 10:47
PROVIDERS: ATTEND Internal Medicine
DX: Z03.89 Encounter for observation for other suspected diseases and conditions ruled out (principal)
CPT/HCPCS: 74018

== ENCOUNTER → 2021-09-20 | Outpatient (CLI) | payer BC ==
--- NOTE | 2021-09-20 14:55 | XR ---
EXAMINATION TYPE: XR chest 2V DATE OF EXAM: 09/20/2021 COMPARISON: [id number] [id number] INDICATION: Covid TECHNIQUE: Single frontal view of the chest is obtained. FINDINGS: The heart size is normal. The pulmonary vasculature is normal. Bibasilar infiltrates are present. Findings are nonspecific but can be compatible with atypical pneum onia. IMPRESSION: 1. Bibasilar infiltrates. Correlate for atypical pneumonia.
== END | disposition home or self-care (01) ==
LOC: RADXRMAIN 14:31
PROVIDERS: ATTEND Internal Medicine
DX: U07.1 COVID-19 (principal); R91.8 Other nonspecific abnormal finding of lung field
CPT/HCPCS: 71046

== ENCOUNTER → 2021-11-10 | Outpatient (CLI) | payer BC ==
[2021-11-10 19:31] LABS: Folate, Serum >20.00 ng/mL (4.40-31.00)
[2021-11-10 20:16] LABS: Basophils # (A) 0.08 X 10*3/uL (0.00-0.10); Basophils % (A) 1.6 %; Eosinophils # (A) 0.25 X 10*3/uL (0.04-0.35); Eosinophils % (A) 4.8 %; HCT 43.5 % (39.6-50.0); HGB 14.4 g/dL (13.0-17.0); Lymphocytes # (A) 1.19 X 10*3/uL (0.90-5.00); Lymphocytes % (A) 23.1 %; MCH 31.5 pg (27.0-32.0); MCHC 33.1 g/dL (32.0-37.0); MCV 95.2 fL (80.0-97.0); Mean Platelet Volume 9.2 fL (9.5-12.2); Monocytes % (A) 11.6 %; Neutrophils # (A) 3.02 X 10*3/uL (1.80-7.70); Neutrophils % (A) 58.5 %; Platelet Count 148 X 10*3/uL (140-440); RBC 4.57 X 10*6/uL (4.40-5.60); RDW 12.6 % (11.5-14.5); WBC 5.16 X 10*3/uL (4.50-10.00)
[2021-11-10 21:03] LABS: ALT 28 U/L (10-49); AST 31 U/L (14-35); African American GFR (CKD) 123.9 (60.0-200.0); Albumin 4.4 g/dL (3.8-4.9); Albumin/Globulin Ratio 1.71 (1.60-3.17); Alkaline Phosphatase 68 U/L (41-126); BUN/Creat Ratio 12.23 Ratio (12.00-20.00); Blood Urea Nitrogen 9.7 mg/dL (9.0-27.0); Calcium 9.6 mg/dL (8.7-10.3); Carbon Dioxide 22.4 mmol/L (20.0-27.5); Chloride 103 mmol/L (96-109); Globulin 2.6 g/dL (1.6-3.3); Glucose 82 mg/dL (70-110); Non-African American GFR(CKD) 106.9 (60.0-200.0); Potassium 4.1 mmol/L (3.5-5.5); Sodium 140 mmol/L (135-145)
[2021-11-10 21:14] LABS: Chol/HDL Ratio 2.74 Ratio
== END | disposition home or self-care (01) ==
LOC: LABWHC1 11:31
PROVIDERS: ATTEND Internal Medicine
DX: I10 Essential (primary) hypertension (principal); E78.2 Mixed hyperlipidemia; R41.3 Other amnesia
CPT/HCPCS: 36415; 80053; 80061; 82306; 82607; 82746; 83036; 83721; 84207; 84425; 84443; 85025

== ENCOUNTER → 2022-04-18 | Outpatient (CLI) | payer BC | END | disposition home or self-care (01) | LOC: LABWHC1 08:51 | PROVIDERS: ATTEND Urology | DX: N52.9 Male erectile dysfunction, unspecified (principal); R97.20 Elevated prostate specific antigen [PSA] | CPT/HCPCS: 36415; 84153; 84403 ==

== ENCOUNTER 2022-06-15 08:00 | Day surgery (SDC) | payer BC ==
[~2022-06-15 08:00] MED LIST changes: -ACETAMINOPHEN TAB 500 MG TAB PO ONE; -DEXAMETHASONE SOD PHOSPHATE 10 MG/ML 1 ML VIAL IV ONE; -HYDROmorphone 0.5 MG/0.5 ML SYRINGE IVP PRN; +LACTATED RINGERS 1,000 ML IV SCH; +LIDOCAINE 1% (10MG/ML) FOR IV START INTRADERMA PRN; -MELOXICAM 7.5 MG TAB PO ONE; -ONDANSETRON 4 MG/2 ML VIAL IVP ONE; -TRANEXAMIC ACID 1,000 MG in SODIUM CHLORIDE 0.9% 100 ML IVPB ONE
[2022-06-15 08:30] VITALS: TEMP 97.2
[2022-06-15] MEDS ORDERED: PROPOFOL 10 MG/ML 20 ML VIAL IV ONE (10:08)
--- NOTE | 2022-06-15 10:28 | P.PCN ---
Date of Procedure: 06/15/22 Procedure(s) Performed: BRIEF HISTORY: Patient is a 46-year-old pleasant white female scheduled for an elective colonoscopy as a part of evaluation of change in bowel habits for the last 1 year duration. PROCEDURE PERFORMED: Colonoscopy with snare polypectomy PREOPERATIVE DIAGNOSIS: Change in In bowel habits. IV sedation per Anesthesia. PROCEDURE: After informed consent was obtained, the patient, was brought into the endoscopy unit. IV sedation was administered by Anesthesia under continuous monitoring. Digital rectal examination was normal. Initially the Olympus CF-160 flexible video colonoscope was then inserted in the rectum, gradually advanced into the right colon without any difficulty. Careful examination was performed as the scope was gradually being withdrawn. There was evidence of right colon resection with ileocolic anastomosis appeared normal. Mucosa of the transverse colon, descending colon, a normal. The sigmoid: There was a 5 limited polyp removed by snare polypectomy. In the rectum there was a 7 mm polyp removed by snare polypectomy. Rest of the sigmoid colon, and rectum appeared normal. Retroflexion was performed in the rectum and no lesions were seen. The patient tolerated the procedure well. IMPRESSION: 5 mm sigmoid polyp status post polypectomy 7 mm rectal polyp status post polypectomy RECOMMENDATIONS: Findings of this examination were discussed with the patient as well as his family. He was advised to follow with the biopsy results. If the biopsy results adenoma he can have a repeat colonoscopy in 5 years.
[2022-06-15 10:36] VITALS: RESP 16
[2022-06-15 10:45] VITALS: BP 150/91; PULSE 74
== END 2022-06-15 10:58 | disposition home or self-care (01) ==
LOC: ORWHC2ENDO 08:00
PROVIDERS: ATTEND Internal Medicine Gastroenterology
DX: D12.5 Benign neoplasm of sigmoid colon (principal); D12.8 Benign neoplasm of rectum
CPT/HCPCS: 88305; 45385; J2704